=== PATIENT | female | born 1985 | race Two or more races ===

== ENCOUNTER → 2021-03-10 | Emergency (ER) | payer OTHER ==
[~2021-03-10] VITALS: Ht 160 cm; Wt 68.6 kg
[~2021-03-10] MED LIST: ACETAMINOPHEN 500 MG TABLET PO ONE; ESCI-8 PO; LURA20TA PO; TRAZ-257 PO
[2021-03-10 21:16] VITALS: BP 135/80
== END | disposition home or self-care (01) ==
LOC: EMS 21:05
DX: M25.571 Pain in right ankle and joints of right foot (principal); Z88.1 Allergy status to other antibiotic agents; Z79.899 Other long term (current) drug therapy
CPT/HCPCS: 99283

== ENCOUNTER 2021-03-16 22:42 | Emergency (ER) | payer OTHER ==
[~2021-03-16] VITALS: Ht 160 cm; Wt 68.2 kg
[~2021-03-16 22:42] MED LIST changes: -ACETAMINOPHEN 500 MG TABLET PO ONE
[2021-03-16 23:35] LABS: BASOPHILS % (AUTO) 0.9 % (0.0-2.0); EOSINOPHILS % (AUTO) 2.1 % (1.0-6.0); HEMATOCRIT 32.4 % (36-46); HEMOGLOBIN 10.1 g/dL (12.0-16.0); LYMPHOCYTES # (AUTO) 1.3 K/uL (1.0-4.8); LYMPHOCYTES % (AUTO) 26.3 % (22.0-44.0); MEAN CORPUSCULAR HEMOGLOBIN 23.3 pg (26.0-34.0); MEAN CORPUSCULAR HGB CONC 31.1 G/dL (31.0-37.0); MEAN CORPUSCULAR VOLUME 75 fL (80-100); MONOCYTES # (AUTO) 0.5 K/uL (0.1-1.0); MONOCYTES % (AUTO) 9.4 % (2.0-9.0); NEUTROPHILS # (AUTO) 3.1 K/uL (1.8-7.7); NEUTROPHILS % (AUTO) 61.3 % (40.0-70.0); PLATELET COUNT (AUTO) 262 K/uL (150-450); RED BLOOD CELL COUNT(AUTO) 4.32 MIL/uL (4.00-5.20); RED CELL DISTRIBUTION WIDTH 16.7 % (11.5-14.5)
[2021-03-16 23:38] LABS: ANION GAP 4 mmol/L (8-16); CALCIUM, TOTAL 8.8 mg/dL (8.8-10.5); CARBON DIOXIDE 27 mmol/L (22-29); CHLORIDE 106 mmol/L (98-107); CREATININE 0.88 mg/dL (0.60-1.30); GLOMERULAR FILTR. RATE CALC > 60 mL/min (>60); GLUCOSE,RANDOM 119 mg/dL (70-110); POTASSIUM 3.6 mmol/L (3.5-5.1); SODIUM SERUM 137 mmol/L (136-145); UREA NITROGEN, BLOOD 10 mg/dL (7-18)
[2021-03-16 23:50] LABS: ALANINE AMINOTRANSFERASE 23 U/L (12-78); ALBUMIN 3.4 g/dL (3.4-5.0); ALKALINE PHOSPHATASE 79 U/L (46-116); ASPARTATE AMINOTRANSFERASE 13 U/L (15-37); BILIRUBIN,TOTAL 0.2 mg/dL (0.1-1.0); TOTAL PROTEIN, SERUM 6.9 g/dL (6.4-8.2)
[2021-03-16 23:55] LABS: SALICYLATE 0.9 mg/dL (2.8-20.0)
[2021-03-17 00:13] LABS: ACETAMINOPHEN < 2 mcg/mL (10-30)
[2021-03-17 00:49] LABS: HCG,QUANTITATIVE < 1 mIU/mL (0-6)
[2021-03-17 01:08] LABS: APPEARANCE,URINE CLOUDY (CLEAR); BILIRUBIN,URINE NEGATIVE (NEGATIVE); GLUCOSE, URINE (UA) NEGATIVE (NEGATIVE); KETONES,URINE NEGATIVE (NEGATIVE); LEUKOCYTE ESTERASE ,URINE TRACE (NEGATIVE); NITRATE,URINE NEGATIVE (NEGATIVE); OCCULT BLOOD,URINE LARGE (NEGATIVE); PROTEIN,URINE POS 1+ (NEGATIVE); UROBILINOGEN,URINE 0.2 mg/dL (<=1.0)
[2021-03-17 01:21] LABS: AMPHET/METH SCREEN,URINE NEGATIVE (NEGATIVE); BARBITURATE SCREEN, URINE NEGATIVE (NEGATIVE); BENZODIAZEPINES SCREEN,URINE NEGATIVE (NEGATIVE); CANNABINOID SCREEN,URINE NEGATIVE (NEGATIVE); COCAINE SCREEN,URINE NEGATIVE (NEGATIVE); METHADONE SCREEN, URINE NEGATIVE (NEGATIVE); OPIATE SCREEN,URINE NEGATIVE (NEGATIVE)
[2021-03-17 01:22] LABS: PHENCYCLIDINE SCREEN,URINE NEGATIVE (NEGATIVE)
[2021-03-17 01:28] LABS: BACTERIA,URINE Few /HPF (None Seen); RBC,URINE 26-50 /HPF (0-2); SQUAMOUS EPITHELIAL CELL,UR Moderate /LPF (None Seen)
[2021-03-17 01:46] VITALS: BP 133/64
== END 2021-03-17 02:55 | disposition home or self-care (01) ==
LOC: EMS 22:48
DX: T43.211A Poisoning by selective serotonin and norepinephrine reuptake inhibitors, accidental (unintentional), initial encounter (principal); T43.221A Poisoning by selective serotonin reuptake inhibitors, accidental (unintentional), initial encounter; G47.00 Insomnia, unspecified; F20.9 Schizophrenia, unspecified; Z88.5 Allergy status to narcotic agent; Y92.89 Other specified places as the place of occurrence of the external cause
CPT/HCPCS: 36415; 80053; 80307; 81001; 84702; 85025; 87086; 87205; 93005; 99284; G0480; G0481

== ENCOUNTER 2021-03-17 17:55 | Inpatient (IN) | payer MEDICAID, OTHER ==
[~2021-03-17] VITALS: Ht 160 cm; Wt 66.8 kg
[2021-03-17 19:21] LABS: BASOPHILS % (AUTO) 0.6 % (0.0-2.0); EOSINOPHILS % (AUTO) 1.3 % (1.0-6.0); HEMATOCRIT 34.5 % (36-46); HEMOGLOBIN 10.7 g/dL (12.0-16.0); LYMPHOCYTES # (AUTO) 1.4 K/uL (1.0-4.8); LYMPHOCYTES % (AUTO) 30.4 % (22.0-44.0); MEAN CORPUSCULAR HEMOGLOBIN 23.1 pg (26.0-34.0); MEAN CORPUSCULAR VOLUME 75 fL (80-100); MONOCYTES # (AUTO) 0.3 K/uL (0.1-1.0); MONOCYTES % (AUTO) 7.3 % (2.0-9.0); NEUTROPHILS # (AUTO) 2.9 K/uL (1.8-7.7); NEUTROPHILS % (AUTO) 60.4 % (40.0-70.0); PLATELET COUNT (AUTO) 303 K/uL (150-450); RED BLOOD CELL COUNT(AUTO) 4.63 MIL/uL (4.00-5.20); RED CELL DISTRIBUTION WIDTH 16.5 % (11.5-14.5)
[2021-03-17 19:39] LABS: APPEARANCE,URINE CLOUDY (CLEAR); BILIRUBIN,URINE NEGATIVE (NEGATIVE); GLUCOSE, URINE (UA) NEGATIVE (NEGATIVE); KETONES,URINE NEGATIVE (NEGATIVE); LEUKOCYTE ESTERASE ,URINE SMALL (NEGATIVE); NITRATE,URINE NEGATIVE (NEGATIVE); OCCULT BLOOD,URINE LARGE (NEGATIVE); PH,URINE 6.5 (5.0-8.0); PROTEIN,URINE POS 1+ (NEGATIVE)
[2021-03-17 19:45] LABS: SALICYLATE 1.2 mg/dL (2.8-20.0)
[2021-03-17 19:47] LABS: ANION GAP 7 mmol/L (8-16); CALCIUM, TOTAL 8.9 mg/dL (8.8-10.5); CARBON DIOXIDE 28 mmol/L (22-29); CHLORIDE 103 mmol/L (98-107); CREATININE 0.76 mg/dL (0.60-1.30); GLOMERULAR FILTR. RATE CALC > 60 mL/min (>60); GLUCOSE,RANDOM 98 mg/dL (70-110); POTASSIUM 3.8 mmol/L (3.5-5.1); SODIUM SERUM 138 mmol/L (136-145); UREA NITROGEN, BLOOD 11 mg/dL (7-18)
[2021-03-17 19:49] LABS: ACETAMINOPHEN < 2 mcg/mL (10-30); ALANINE AMINOTRANSFERASE 25 U/L (12-78); ALBUMIN 3.9 g/dL (3.4-5.0); ALKALINE PHOSPHATASE 76 U/L (46-116); ASPARTATE AMINOTRANSFERASE 17 U/L (15-37); BILIRUBIN,TOTAL 0.4 mg/dL (0.1-1.0); TOTAL PROTEIN, SERUM 7.4 g/dL (6.4-8.2)
[2021-03-17 20:12] LABS: AMPHET/METH SCREEN,URINE NEGATIVE (NEGATIVE); BARBITURATE SCREEN, URINE NEGATIVE (NEGATIVE); BENZODIAZEPINES SCREEN,URINE NEGATIVE (NEGATIVE); CANNABINOID SCREEN,URINE NEGATIVE (NEGATIVE); COCAINE SCREEN,URINE NEGATIVE (NEGATIVE); METHADONE SCREEN, URINE NEGATIVE (NEGATIVE); OPIATE SCREEN,URINE NEGATIVE (NEGATIVE)
[2021-03-17 20:28] LABS: PHENCYCLIDINE SCREEN,URINE NEGATIVE (NEGATIVE)
[2021-03-17 20:42] LABS: RBC,URINE >100 /HPF (0-2)
[2021-03-17 20:43] LABS: BACTERIA,URINE Moderate /HPF (None Seen); SQUAMOUS EPITHELIAL CELL,UR Moderate /LPF (None Seen)
[2021-03-17] MEDS ORDERED: HALOPERIDOL 5 MG TABLET PO PRN (21:15)
[2021-03-17] MEDS ORDERED: ZOLPIDEM TARTRATE 10 MG TABLET PO PRN (21:15)
[2021-03-17 21:43] LABS: COVID AG,FIA SOURCE NASAL SWAB
[2021-03-17] MEDS: LORazepam 2 MG TABLET PO PRN (23:07)
[2021-03-18 02:01] VITALS: BP 110/65
[2021-03-18 07:48] LABS: CHOL/HDL RATIO 2.8 (3.9-5.7); FREE T4 (FREE THYROXINE) 1.03 ng/dL (0.76-1.46); THYROID STIMULATING HORMONE 1.39 uIU/mL (0.36-3.74)
[2021-03-18 08:24] VITALS: BP 113/72
[2021-03-18] MEDS ORDERED: MAGNESIUM HYDROXIDE SUSPENSION 30 ML UDCUP PO PRN (08:45)
[2021-03-18] MEDS ORDERED: CloNIDine HCL 0.1 MG TABLET PO PRN (08:45)
[2021-03-18] MEDS ORDERED: ALBUTEROL SULFATE HFA 90 MCG/PUFF 8 GM INHALER IH PRN (08:45)
[2021-03-18] MEDS ORDERED: NICOTINE 14 MG/24 HOUR PATCH TD PRN (08:45)
[2021-03-18] MEDS ORDERED: LOPERAMIDE HCL 2 MG CAPSULE PO PRN (08:45)
[2021-03-18] MEDS ORDERED: IBUPROFEN 400 MG TABLET PO PRN (08:45)
[2021-03-18] MEDS ORDERED: DOCUSATE SODIUM 100 MG CAPSULE PO PRN (08:45)
[2021-03-18] MEDS ORDERED: ACETAMINOPHEN 325 MG TABLET PO PRN (08:45)
[2021-03-18] MEDS ORDERED: MAG HYDROX/AL HYDROX/SIMETH ES 30 ML SUSPENSION UDCUP PO PRN (08:45)
[2021-03-18] MEDS ORDERED: GuaiFENesin/D-METHORPHAN [SUGAR-FREE] 200-20MG/10 ML SYRUP UDCUP PO PRN (08:45)
[2021-03-18] MEDS ORDERED: PETROLATUM,WHITE 28 GM JELLY TP PRN (08:45)
[2021-03-18] MEDS ORDERED: ONDANSETRON HCL 4 MG TABLET PO PRN (08:45)
[2021-03-18] MEDS: ESCITALOPRAM OXALATE 10 MG TABLET PO SCH (12:54)
[2021-03-18 16:31] VITALS: BP 114/72
[2021-03-18] MEDS: LURASIDONE HCL 40 MG TABLET PO SCH (17:04)
[2021-03-18] MEDS: TraZODone HCL 100 MG TABLET PO SCH (20:04)
[2021-03-19 05:12] VITALS: BP 100/55
[2021-03-19 08:10] VITALS: BP 119/75
[2021-03-19] MEDS: ESCITALOPRAM OXALATE 10 MG TABLET PO SCH (08:29)
[2021-03-19] MEDS: LURASIDONE HCL 40 MG TABLET PO SCH (16:49)
[2021-03-19 20:19] VITALS: BP 108/70
[2021-03-19] MEDS: TraZODone HCL 100 MG TABLET PO SCH (21:07)
[2021-03-20 05:53] VITALS: BP 106/68
[2021-03-20 08:19] VITALS: BP 126/72
[2021-03-20] MEDS: ESCITALOPRAM OXALATE 10 MG TABLET PO SCH (09:00)
[2021-03-20 16:01] VITALS: BP 123/76
[2021-03-20] MEDS: LURASIDONE HCL 40 MG TABLET PO SCH (16:53)
[2021-03-20] MEDS: TraZODone HCL 100 MG TABLET PO SCH (20:38)
[2021-03-21 00:39] VITALS: BP 102/68
[2021-03-21] MEDS: ESCITALOPRAM OXALATE 10 MG TABLET PO SCH (08:02)
[2021-03-21 09:31] VITALS: BP 105/67
[2021-03-21 16:23] VITALS: BP 106/68
[2021-03-21] MEDS: LURASIDONE HCL 40 MG TABLET PO SCH (16:44)
[2021-03-21] MEDS: MetroNIDAZOLE 500 MG TABLET PO SCH (16:44)
[2021-03-21] MEDS: TraZODone HCL 100 MG TABLET PO SCH (21:15)
[2021-03-22 00:32] VITALS: BP 104/62
[2021-03-22] MEDS: LORazepam 2 MG TABLET PO PRN (00:40)
[2021-03-22 08:00] VITALS: BP 109/58
[2021-03-22 08:37] LABS: COVID AG,FIA SOURCE NASOPHARYNGEAL
[2021-03-22] MEDS: MetroNIDAZOLE 500 MG TABLET PO SCH ×3 (09:05→16:25)
[2021-03-22] MEDS: ESCITALOPRAM OXALATE 10 MG TABLET PO SCH (09:05)
[2021-03-22] MEDS ORDERED: METR500 PO (15:47)
[2021-03-22 16:11] VITALS: BP 112/64
[2021-03-22] MEDS: LURASIDONE HCL 40 MG TABLET PO SCH (16:25)
== END 2021-03-22 16:45 | disposition home or self-care (01) | DRG 750 ==
LOC: EMS 17:56 → B2S 21:01
DX: F25.1 Schizoaffective disorder, depressive type (principal); E44.0 Moderate protein-calorie malnutrition; G47.00 Insomnia, unspecified; D64.9 Anemia, unspecified; R10.13 Epigastric pain; F41.9 Anxiety disorder, unspecified; Z20.822 Contact with and (suspected) exposure to COVID-19; Z88.8 Allergy status to other drugs, medicaments and biological substances; Z59.0 Homelessness; Z91.5 Personal history of self-harm; Z79.899 Other long term (current) drug therapy; Z68.26 Body mass index [BMI] 26.0-26.9, adult
CPT/HCPCS: 80053; 80061; 81001; 84439; 84443; 85025; 87086; 99285; G0480; G0481

== ENCOUNTER 2021-04-12 23:15 | Emergency (ER) | payer MEDICAID, OTHER ==
[~2021-04-12] VITALS: Ht 152.4 cm; Wt 52.3 kg
[~2021-04-12 23:15] MED LIST changes: +METR500 PO
[2021-04-12] MEDS ORDERED: DiphenhydrAMINE HCL 50 MG/ML VIAL IVP STA (23:25)
[2021-04-12] MEDS ORDERED: ACETAMINOPHEN 500 MG TABLET PO ONE (23:30)
[2021-04-12] MEDS ORDERED: METOCLOPRAMIDE HCL 5 MG/ML 2 ML VIAL IVP ONE (23:30)
[2021-04-12] MEDS ORDERED: IBUPROFEN 800 MG TABLET PO ONE (23:30)
[2021-04-13 00:37] LABS: COVID AG,FIA SOURCE NASOPHARYNGEAL
[2021-04-13 02:14] VITALS: BP 111/64
== END 2021-04-13 03:50 | disposition home or self-care (01) ==
LOC: EMS 23:16
DX: R51.9 Headache, unspecified (principal); R19.7 Diarrhea, unspecified; R11.0 Nausea; F41.9 Anxiety disorder, unspecified; F32.9 Major depressive disorder, single episode, unspecified; F20.9 Schizophrenia, unspecified; Z20.822 Contact with and (suspected) exposure to COVID-19; Z88.1 Allergy status to other antibiotic agents
CPT/HCPCS: 87426; 96374; 96375; 99284; J1200; J2765

== ENCOUNTER 2021-06-29 15:14 | Inpatient (IN) | payer MEDICAID, OTHER ==
[~2021-06-29] VITALS: Ht 160 cm; Wt 70.1 kg
[2021-06-29 16:35] LABS: BASOPHILS % (AUTO) 0.4 % (0.0-2.0); EOSINOPHILS % (AUTO) 1.5 % (1.0-6.0); HEMATOCRIT 31.4 % (36-46); HEMOGLOBIN 9.6 g/dL (12.0-16.0); LYMPHOCYTES # (AUTO) 1.3 K/uL (1.0-4.8); MEAN CORPUSCULAR HEMOGLOBIN 22.4 pg (26.0-34.0); MEAN CORPUSCULAR HGB CONC 30.7 G/dL (31.0-37.0); MEAN CORPUSCULAR VOLUME 73 fL (80-100); MONOCYTES # (AUTO) 0.5 K/uL (0.1-1.0); MONOCYTES % (AUTO) 9.5 % (2.0-9.0); NEUTROPHILS # (AUTO) 3.5 K/uL (1.8-7.7); NEUTROPHILS % (AUTO) 64.6 % (40.0-70.0); PLATELET COUNT (AUTO) 318 K/uL (150-450); RED BLOOD CELL COUNT(AUTO) 4.31 MIL/uL (4.00-5.20); RED CELL DISTRIBUTION WIDTH 18.2 % (11.5-14.5)
[2021-06-29 16:48] LABS: ANION GAP 7 mmol/L (8-16); CALCIUM, TOTAL 8.6 mg/dL (8.8-10.5); CARBON DIOXIDE 28 mmol/L (22-29); CHLORIDE 107 mmol/L (98-107); CREATININE 0.78 mg/dL (0.60-1.30); GLOMERULAR FILTR. RATE CALC > 60 mL/min (>60); GLUCOSE,RANDOM 96 mg/dL (70-110); POTASSIUM 3.5 mmol/L (3.5-5.1); SODIUM SERUM 142 mmol/L (136-145); UREA NITROGEN, BLOOD 12 mg/dL (7-18)
[2021-06-29 17:09] LABS: ALANINE AMINOTRANSFERASE 32 U/L (12-78); ALBUMIN 3.3 g/dL (3.4-5.0); ALKALINE PHOSPHATASE 88 U/L (46-116); ASPARTATE AMINOTRANSFERASE 17 U/L (15-37); BILIRUBIN,TOTAL 0.3 mg/dL (0.1-1.0); TOTAL PROTEIN, SERUM 7.1 g/dL (6.4-8.2)
[2021-06-29] MEDS ORDERED: ZOLPIDEM TARTRATE 10 MG TABLET PO PRN (17:15)
[2021-06-29] MEDS ORDERED: LORazepam 2 MG TABLET PO PRN (17:15)
[2021-06-29] MEDS ORDERED: HALOPERIDOL 5 MG TABLET PO PRN (17:15)
[2021-06-29 17:28] LABS: COVID AG,FIA SOURCE NASOPHARYNGEAL
[2021-06-29 17:29] LABS: HCG,QUANTITATIVE < 1 mIU/mL (0-6)
[2021-06-29] MEDS ORDERED: ONDANSETRON HCL 4 MG TABLET PO ONE (20:45)
[2021-06-29 21:20] VITALS: BP 121/76
[2021-06-29] MEDS ORDERED: SODIUM CHLORIDE 0.9% 0 ML ONE (21:26)
[2021-06-29] MEDS ORDERED: IOHEXOL 350 MG/ML 100 ML VIAL ONE (21:26)
[2021-06-29] MEDS ORDERED: BARIUM SULFATE 0.1% SUSPENSION 450 ML BOTTLE ONE (21:26)
[2021-06-29] MEDS ORDERED: ONDANSETRON HCL 4 MG TABLET PO PRN (21:30)
[2021-06-29 21:41] LABS: AMYLASE 52 U/L (25-115); LIPASE 64 U/L (73-393)
[2021-06-29] MEDS: IBUPROFEN 400 MG TABLET PO PRN ×2 (21:58→22:03)
[2021-06-30 08:14] VITALS: BP 108/67
[2021-06-30 09:24] LABS: CHOL/HDL RATIO 2.2 (3.9-5.7); FREE T4 (FREE THYROXINE) 1.07 ng/dL (0.76-1.46); THYROID STIMULATING HORMONE 0.26 uIU/mL (0.36-3.74)
[2021-07-02] MEDS ORDERED: LURA40TA2 PO (11:32)
[2021-07-07] MEDS ORDERED: DOCU-270 PO (13:15)
[2021-07-07] MEDS ORDERED: BISA10SU11 PR (13:16)
== END 2021-06-30 11:00 | disposition short-term general hospital (02) | DRG 750 ==
LOC: EMS 15:16 → 3EC 20:34
DX: F25.9 Schizoaffective disorder, unspecified (principal); R45.851 Suicidal ideations; Z20.822 Contact with and (suspected) exposure to COVID-19; D64.9 Anemia, unspecified; Z88.8 Allergy status to other drugs, medicaments and biological substances; Z91.5 Personal history of self-harm
CPT/HCPCS: 74176; 80053; 80061; 82150; 83690; 84439; 84443; 84702; 85025; 99285; G0480; J7050; Q0162; Q9967

== ENCOUNTER 2021-07-08 18:01 | Emergency (ER) | payer OTHER ==
[~2021-07-08] VITALS: Ht 162.6 cm; Wt 69.9 kg
[~2021-07-08 18:01] MED LIST changes: +BISA10SU11 PR; +DOCU-270 PO; -LURA20TA PO; +LURA40TA2 PO; -METR500 PO
[2021-07-08 18:20] VITALS: BP 118/75
[2021-07-08] MEDS ORDERED: MAGNESIUM HYDROXIDE SUSPENSION 30 ML UDCUP PO ONE (18:30)
[2021-07-08] MEDS ORDERED: ACETAMINOPHEN 500 MG TABLET PO ONE (18:30)
== END 2021-07-08 19:28 | disposition home or self-care (01) ==
LOC: EMS 18:06
DX: K91.89 Other postprocedural complications and disorders of digestive system (principal); F25.9 Schizoaffective disorder, unspecified; R10.84 Generalized abdominal pain; F41.9 Anxiety disorder, unspecified; F32.9 Major depressive disorder, single episode, unspecified; Z91.14 Patient's other noncompliance with medication regimen; Z88.5 Allergy status to narcotic agent; Z88.1 Allergy status to other antibiotic agents
CPT/HCPCS: 99283

== ENCOUNTER 2021-07-18 12:32 | Emergency (ER) | payer OTHER ==
[~2021-07-18] VITALS: Ht 160 cm; Wt 60.9 kg
[2021-07-18] MEDS ORDERED: KETOROLAC TROMETHAMINE 30 MG/ML VIAL IVP ONE (13:15)
[2021-07-18 13:32] LABS: BASOPHILS % (AUTO) 0.9 % (0.0-2.0); EOSINOPHILS % (AUTO) 2.9 % (1.0-6.0); HEMATOCRIT 29.6 % (36-46); HEMOGLOBIN 9.2 g/dL (12.0-16.0); LYMPHOCYTES # (AUTO) 1.3 K/uL (1.0-4.8); LYMPHOCYTES % (AUTO) 25.6 % (22.0-44.0); MEAN CORPUSCULAR HEMOGLOBIN 22.3 pg (26.0-34.0); MEAN CORPUSCULAR HGB CONC 31.1 G/dL (31.0-37.0); MEAN CORPUSCULAR VOLUME 72 fL (80-100); MONOCYTES # (AUTO) 0.5 K/uL (0.1-1.0); MONOCYTES % (AUTO) 9.2 % (2.0-9.0); NEUTROPHILS # (AUTO) 3.1 K/uL (1.8-7.7); NEUTROPHILS % (AUTO) 61.4 % (40.0-70.0); PLATELET COUNT (AUTO) 459 K/uL (150-450); RED BLOOD CELL COUNT(AUTO) 4.12 MIL/uL (4.00-5.20); RED CELL DISTRIBUTION WIDTH 17.9 % (11.5-14.5)
[2021-07-18 13:42] LABS: ANION GAP 12 mmol/L (8-16); CALCIUM, TOTAL 8.8 mg/dL (8.8-10.5); CARBON DIOXIDE 25 mmol/L (22-29); CHLORIDE 103 mmol/L (98-107); CREATININE 0.63 mg/dL (0.60-1.30); GLOMERULAR FILTR. RATE CALC > 60 mL/min (>60); GLUCOSE,RANDOM 97 mg/dL (70-110); POTASSIUM 3.7 mmol/L (3.5-5.1); SODIUM SERUM 140 mmol/L (136-145); UREA NITROGEN, BLOOD 9 mg/dL (7-18)
[2021-07-18 13:54] LABS: ALANINE AMINOTRANSFERASE 35 U/L (12-78); ALBUMIN 3.3 g/dL (3.4-5.0); ALKALINE PHOSPHATASE 88 U/L (46-116); ASPARTATE AMINOTRANSFERASE 17 U/L (15-37); BILIRUBIN,TOTAL 0.4 mg/dL (0.1-1.0); HCG,QUANTITATIVE < 1 mIU/mL (0-6); LIPASE 115 U/L (73-393); TOTAL PROTEIN, SERUM 7.2 g/dL (6.4-8.2)
[2021-07-18] MEDS ORDERED: SODIUM CHLORIDE 0.9% 100 ML ONE (14:21)
[2021-07-18] MEDS ORDERED: IOHEXOL 350 MG/ML 100 ML VIAL ONE (14:22)
[2021-07-18 14:54] LABS: APPEARANCE,URINE CLOUDY (CLEAR); BILIRUBIN,URINE NEGATIVE (NEGATIVE); GLUCOSE, URINE (UA) NEGATIVE (NEGATIVE); KETONES,URINE 15 mg/dL (NEGATIVE); LEUKOCYTE ESTERASE ,URINE NEGATIVE (NEGATIVE); NITRATE,URINE NEGATIVE (NEGATIVE); OCCULT BLOOD,URINE SMALL (NEGATIVE); PH,URINE 5.5 (5.0-8.0); PROTEIN,URINE NEGATIVE (NEGATIVE); UROBILINOGEN,URINE 0.2 mg/dL (<=1.0)
[2021-07-18 15:55] LABS: BACTERIA,URINE Few /HPF (None Seen); SQUAMOUS EPITHELIAL CELL,UR Many /LPF (None Seen); WBC,URINE 0-2 /HPF (0-5)
[2021-07-18 17:36] LABS: LACTIC ACID 0.9 mmol/L (0.4-2.0)
[2021-07-18 20:05] VITALS: BP 129/68
== END 2021-07-18 20:58 | disposition home or self-care (01) ==
LOC: EMS 12:35
DX: G89.18 Other acute postprocedural pain (principal); R10.84 Generalized abdominal pain
CPT/HCPCS: 36415; 74176; 76856; 80053; 81001; 83605; 83690; 84702; 85025; 99285; J7050; Q9967

== ENCOUNTER 2021-07-20 23:15 | Emergency (ER) | payer OTHER ==
[~2021-07-20] VITALS: Ht 172.7 cm; Wt 63.6 kg
[2021-07-20] MEDS ORDERED: LIDOCAINE 1% 10 ML VIAL ID ONE (23:45)
[2021-07-21 03:15] VITALS: BP 118/66
== END 2021-07-21 03:43 | disposition home or self-care (01) ==
LOC: EMS 23:19
DX: G47.00 Insomnia, unspecified (principal); F20.9 Schizophrenia, unspecified; F32.9 Major depressive disorder, single episode, unspecified; F41.9 Anxiety disorder, unspecified; Z88.1 Allergy status to other antibiotic agents; Z88.8 Allergy status to other drugs, medicaments and biological substances
CPT/HCPCS: 99283; Z7502

== ENCOUNTER 2021-07-30 13:52 | Emergency (ER) | payer OTHER ==
[~2021-07-30] VITALS: Ht 162.6 cm; Wt 67.7 kg
[2021-07-30 14:34] LABS: COVID AG,FIA SOURCE NASAL SWAB
[2021-07-30 14:38] LABS: BASOPHILS % (AUTO) 0.7 % (0.0-2.0); EOSINOPHILS % (AUTO) 3.2 % (1.0-6.0); HEMOGLOBIN 9.3 g/dL (12.0-16.0); LYMPHOCYTES # (AUTO) 1.3 K/uL (1.0-4.8); LYMPHOCYTES % (AUTO) 25.6 % (22.0-44.0); MEAN CORPUSCULAR HEMOGLOBIN 21.9 pg (26.0-34.0); MEAN CORPUSCULAR HGB CONC 30.9 G/dL (31.0-37.0); MEAN CORPUSCULAR VOLUME 71 fL (80-100); MONOCYTES # (AUTO) 0.5 K/uL (0.1-1.0); MONOCYTES % (AUTO) 9.4 % (2.0-9.0); NEUTROPHILS # (AUTO) 3.2 K/uL (1.8-7.7); NEUTROPHILS % (AUTO) 61.1 % (40.0-70.0); PLATELET COUNT (AUTO) 310 K/uL (150-450); RED BLOOD CELL COUNT(AUTO) 4.23 MIL/uL (4.00-5.20); RED CELL DISTRIBUTION WIDTH 17.8 % (11.5-14.5)
[2021-07-30 14:56] LABS: ANION GAP 6 mmol/L (8-16); CALCIUM, TOTAL 8.6 mg/dL (8.8-10.5); CARBON DIOXIDE 28 mmol/L (22-29); CHLORIDE 107 mmol/L (98-107); CREATININE 0.65 mg/dL (0.60-1.30); GLOMERULAR FILTR. RATE CALC > 60 mL/min (>60); GLUCOSE,RANDOM 104 mg/dL (70-110); POTASSIUM 3.6 mmol/L (3.5-5.1); SODIUM SERUM 141 mmol/L (136-145); UREA NITROGEN, BLOOD 9 mg/dL (7-18)
[2021-07-30 15:02] LABS: INFLUENZA TYPE A NEGATIVE FOR TYPE A (NEGATIVE); INFLUENZA TYPE B NEGATIVE FOR TYPE B (NEGATIVE)
[2021-07-30 15:50] LABS: ALANINE AMINOTRANSFERASE 35 U/L (12-78); ALBUMIN 3.5 g/dL (3.4-5.0); ALKALINE PHOSPHATASE 86 U/L (46-116); ASPARTATE AMINOTRANSFERASE 20 U/L (15-37); BILIRUBIN,TOTAL 0.2 mg/dL (0.1-1.0); HCG,QUANTITATIVE 1 mIU/mL (0-6); TOTAL PROTEIN, SERUM 7.2 g/dL (6.4-8.2)
[2021-07-30 16:10] LABS: APPEARANCE,URINE CLOUDY (CLEAR); BILIRUBIN,URINE NEGATIVE (NEGATIVE); GLUCOSE, URINE (UA) NEGATIVE (NEGATIVE); KETONES,URINE NEGATIVE (NEGATIVE); LEUKOCYTE ESTERASE ,URINE NEGATIVE (NEGATIVE); NITRATE,URINE NEGATIVE (NEGATIVE); OCCULT BLOOD,URINE LARGE (NEGATIVE); PROTEIN,URINE NEGATIVE (NEGATIVE); UROBILINOGEN,URINE 0.2 mg/dL (<=1.0)
[2021-07-30 16:22] LABS: SQUAMOUS EPITHELIAL CELL,UR Few /LPF (None Seen)
[2021-07-30 16:23] LABS: BACTERIA,URINE Rare /HPF (None Seen)
[2021-07-30 16:52] VITALS: BP 127/77
== END 2021-07-30 17:00 | disposition home or self-care (01) ==
LOC: EDUNIT# 13:52 → EMS 13:54
DX: B34.9 Viral infection, unspecified (principal); G47.00 Insomnia, unspecified; F32.9 Major depressive disorder, single episode, unspecified; F20.9 Schizophrenia, unspecified; F41.9 Anxiety disorder, unspecified; Z20.822 Contact with and (suspected) exposure to COVID-19
CPT/HCPCS: 80053; 81001; 84702; 85025; 87804; 93005; 99284

== ENCOUNTER 2021-09-26 22:03 | Emergency (ER) | payer OTHER ==
[~2021-09-26] VITALS: Ht 165.1 cm; Wt 70.5 kg
[2021-09-26] MEDS ORDERED: ONDANSETRON HCL 4 MG/2 ML VIAL IVP ONE (22:45)
[2021-09-26] MEDS ORDERED: KETOROLAC TROMETHAMINE 30 MG/ML VIAL IVP ONE (22:45)
[2021-09-26] MEDS ORDERED: SODIUM CHLORIDE 0.9% 1,000 ML IV ONE (22:45)
[2021-09-26 22:55] LABS: BASOPHILS % (AUTO) 0.5 % (0.0-2.0); EOSINOPHILS % (AUTO) 1.5 % (1.0-6.0); HEMOGLOBIN 10.3 g/dL (12.0-16.0); LYMPHOCYTES # (AUTO) 1.2 K/uL (1.0-4.8); LYMPHOCYTES % (AUTO) 21.1 % (22.0-44.0); MEAN CORPUSCULAR HEMOGLOBIN 21.1 pg (26.0-34.0); MEAN CORPUSCULAR HGB CONC 31.2 G/dL (31.0-37.0); MEAN CORPUSCULAR VOLUME 68 fL (80-100); MONOCYTES # (AUTO) 0.7 K/uL (0.1-1.0); MONOCYTES % (AUTO) 12.5 % (2.0-9.0); NEUTROPHILS # (AUTO) 3.8 K/uL (1.8-7.7); NEUTROPHILS % (AUTO) 64.4 % (40.0-70.0); PLATELET COUNT (AUTO) 406 K/uL (150-450); RED BLOOD CELL COUNT(AUTO) 4.89 MIL/uL (4.00-5.20); RED CELL DISTRIBUTION WIDTH 18.1 % (11.5-14.5)
[2021-09-26 23:03] LABS: ANION GAP 6 mmol/L (8-16); CALCIUM, TOTAL 8.9 mg/dL (8.8-10.5); CARBON DIOXIDE 29 mmol/L (22-29); CHLORIDE 107 mmol/L (98-107); CREATININE 0.84 mg/dL (0.60-1.30); GLOMERULAR FILTR. RATE CALC > 60 mL/min (>60); GLUCOSE,RANDOM 104 mg/dL (70-110); POTASSIUM 3.4 mmol/L (3.5-5.1); SODIUM SERUM 142 mmol/L (136-145); UREA NITROGEN, BLOOD 18 mg/dL (7-18)
[2021-09-26 23:15] LABS: ALANINE AMINOTRANSFERASE 41 U/L (12-78); ALBUMIN 3.5 g/dL (3.4-5.0); ALKALINE PHOSPHATASE 91 U/L (46-116); ASPARTATE AMINOTRANSFERASE 25 U/L (15-37); BILIRUBIN,TOTAL 0.3 mg/dL (0.1-1.0); HCG,QUANTITATIVE < 1 mIU/mL (0-6); LIPASE 54 U/L (73-393); TOTAL PROTEIN, SERUM 7.4 g/dL (6.4-8.2)
[2021-09-26] MEDS ORDERED: SODIUM CHLORIDE 0.9% 100 ML ONE (23:36)
[2021-09-26] MEDS ORDERED: IOHEXOL 350 MG/ML 100 ML VIAL ONE (23:36)
[2021-09-27] MEDS ORDERED: POTASSIUM CHLORIDE 10% 40 MEQ/30 ML LIQUID UDCUP PO ONE (01:15)
[2021-09-27 04:01] VITALS: BP 108/70
[2021-09-27 04:21] LABS: COVID AG,FIA SOURCE NASOPHARYNGEAL
[2021-09-27 05:48] LABS: APPEARANCE,URINE CLEAR (CLEAR); BILIRUBIN,URINE NEGATIVE (NEGATIVE); GLUCOSE, URINE (UA) NEGATIVE (NEGATIVE); KETONES,URINE NEGATIVE (NEGATIVE); LEUKOCYTE ESTERASE ,URINE NEGATIVE (NEGATIVE); NITRATE,URINE NEGATIVE (NEGATIVE); OCCULT BLOOD,URINE NEGATIVE (NEGATIVE); PROTEIN,URINE TRACE (NEGATIVE); UROBILINOGEN,URINE 0.2 mg/dL (<=1.0)
[2021-09-27 06:49] LABS: BACTERIA,URINE None Seen /HPF (None Seen); RBC,URINE None Seen /HPF (0-2); SQUAMOUS EPITHELIAL CELL,UR Few /LPF (None Seen); WBC,URINE None Seen /HPF (0-5)
== END 2021-09-27 05:15 | disposition home or self-care (01) ==
LOC: EMS 22:06
DX: K52.9 Noninfective gastroenteritis and colitis, unspecified (principal); Z20.822 Contact with and (suspected) exposure to COVID-19
CPT/HCPCS: 36415; 74177; 76705; 80053; 81001; 83690; 84702; 85025; 87210; 87426; 96361; 96374; 96375; 99285; J1885; J2405; J7050; Q9967

== ENCOUNTER 2021-10-06 13:54 | Emergency (ER) | payer OTHER ==
[~2021-10-06] VITALS: Ht 160 cm; Wt 72.7 kg
[~2021-10-06 13:54] MED LIST changes: -BISA10SU11 PR; -DOCU-270 PO
[2021-10-06 14:21] VITALS: BP 118/67
== END 2021-10-06 15:08 | disposition home or self-care (01) ==
LOC: EMS 13:54
DX: R63.8 Other symptoms and signs concerning food and fluid intake (principal); F32.9 Major depressive disorder, single episode, unspecified; F41.9 Anxiety disorder, unspecified; F20.9 Schizophrenia, unspecified; Z88.1 Allergy status to other antibiotic agents; Z79.899 Other long term (current) drug therapy
CPT/HCPCS: 99283; Z7502

== ENCOUNTER 2021-10-08 18:42 | Emergency (ER) | payer OTHER ==
[~2021-10-08] VITALS: Ht 160 cm; Wt 72.7 kg
[2021-10-08 18:54] VITALS: BP 134/83
[2021-10-08 20:28] LABS: BASOPHILS % (AUTO) 0.5 % (0.0-2.0); EOSINOPHILS % (AUTO) 1.2 % (1.0-6.0); HEMATOCRIT 30.7 % (36-46); HEMOGLOBIN 9.6 g/dL (12.0-16.0); LYMPHOCYTES # (AUTO) 1.7 K/uL (1.0-4.8); LYMPHOCYTES % (AUTO) 23.1 % (22.0-44.0); MEAN CORPUSCULAR HGB CONC 31.2 G/dL (31.0-37.0); MEAN CORPUSCULAR VOLUME 67 fL (80-100); MONOCYTES # (AUTO) 0.7 K/uL (0.1-1.0); MONOCYTES % (AUTO) 9.1 % (2.0-9.0); NEUTROPHILS % (AUTO) 66.1 % (40.0-70.0); PLATELET COUNT (AUTO) 396 K/uL (150-450); RED BLOOD CELL COUNT(AUTO) 4.57 MIL/uL (4.00-5.20); RED CELL DISTRIBUTION WIDTH 18.1 % (11.5-14.5)
[2021-10-08 20:37] LABS: ANION GAP 5 mmol/L (8-16); CALCIUM, TOTAL 8.9 mg/dL (8.8-10.5); CARBON DIOXIDE 29 mmol/L (22-29); CHLORIDE 106 mmol/L (98-107); CREATININE 0.66 mg/dL (0.60-1.30); GLOMERULAR FILTR. RATE CALC > 60 mL/min (>60); GLUCOSE,RANDOM 115 mg/dL (70-110); POTASSIUM 3.7 mmol/L (3.5-5.1); SODIUM SERUM 140 mmol/L (136-145); UREA NITROGEN, BLOOD 14 mg/dL (7-18)
[2021-10-08 20:48] LABS: ALANINE AMINOTRANSFERASE 31 U/L (12-78); ALBUMIN 3.6 g/dL (3.4-5.0); ALKALINE PHOSPHATASE 94 U/L (46-116); ASPARTATE AMINOTRANSFERASE 13 U/L (15-37); BILIRUBIN,TOTAL 0.2 mg/dL (0.1-1.0); HCG,QUANTITATIVE < 1 mIU/mL (0-6); LIPASE 90 U/L (73-393); TOTAL PROTEIN, SERUM 7.3 g/dL (6.4-8.2)
[2021-10-08 20:52] LABS: APPEARANCE,URINE CLOUDY (CLEAR); BILIRUBIN,URINE NEGATIVE (NEGATIVE); GLUCOSE, URINE (UA) NEGATIVE (NEGATIVE); KETONES,URINE NEGATIVE (NEGATIVE); LEUKOCYTE ESTERASE ,URINE NEGATIVE (NEGATIVE); NITRATE,URINE NEGATIVE (NEGATIVE); OCCULT BLOOD,URINE TRACE (NEGATIVE); PH,URINE 5.5 (5.0-8.0); PROTEIN,URINE NEGATIVE (NEGATIVE); UROBILINOGEN,URINE 0.2 mg/dL (<=1.0)
[2021-10-08 20:54] LABS: BACTERIA,URINE None Seen /HPF (None Seen); RBC,URINE 0-2 /HPF (0-2); SQUAMOUS EPITHELIAL CELL,UR Moderate /LPF (None Seen); WBC,URINE 0-2 /HPF (0-5)
== END 2021-10-08 21:20 | disposition home or self-care (01) ==
LOC: EMS 18:47
DX: R19.7 Diarrhea, unspecified (principal); R10.31 Right lower quadrant pain; F20.9 Schizophrenia, unspecified
CPT/HCPCS: 80053; 81001; 83690; 84702; 85025; 99283

== ENCOUNTER 2021-10-21 21:54 | Emergency (ER) | payer OTHER ==
[~2021-10-21] VITALS: Ht 160 cm; Wt 72.7 kg
[2021-10-22 00:20] LABS: BASOPHILS % (AUTO) 0.4 % (0.0-2.0); EOSINOPHILS % (AUTO) 1.4 % (1.0-6.0); HEMATOCRIT 33.1 % (36-46); HEMOGLOBIN 10.1 g/dL (12.0-16.0); LYMPHOCYTES # (AUTO) 1.8 K/uL (1.0-4.8); LYMPHOCYTES % (AUTO) 23.5 % (22.0-44.0); MEAN CORPUSCULAR HGB CONC 30.6 G/dL (31.0-37.0); MEAN CORPUSCULAR VOLUME 68 fL (80-100); MONOCYTES # (AUTO) 0.8 K/uL (0.1-1.0); NEUTROPHILS # (AUTO) 4.9 K/uL (1.8-7.7); NEUTROPHILS % (AUTO) 64.7 % (40.0-70.0); PLATELET COUNT (AUTO) 407 K/uL (150-450); RED BLOOD CELL COUNT(AUTO) 4.84 MIL/uL (4.00-5.20); RED CELL DISTRIBUTION WIDTH 19.3 % (11.5-14.5)
[2021-10-22 00:31] LABS: ANION GAP 2 mmol/L (8-16); CALCIUM, TOTAL 9.5 mg/dL (8.8-10.5); CARBON DIOXIDE 30 mmol/L (22-29); CHLORIDE 105 mmol/L (98-107); CREATININE 0.74 mg/dL (0.60-1.30); GLOMERULAR FILTR. RATE CALC > 60 mL/min (>60); GLUCOSE,RANDOM 102 mg/dL (70-110); POTASSIUM 3.7 mmol/L (3.5-5.1); SODIUM SERUM 137 mmol/L (136-145); UREA NITROGEN, BLOOD 13 mg/dL (7-18)
[2021-10-22 00:36] LABS: ALANINE AMINOTRANSFERASE 20 U/L (12-78); ALBUMIN 3.8 g/dL (3.4-5.0); ALKALINE PHOSPHATASE 89 U/L (46-116); ASPARTATE AMINOTRANSFERASE 10 U/L (15-37); BILIRUBIN,TOTAL 0.4 mg/dL (0.1-1.0); LIPASE 81 U/L (73-393); TOTAL PROTEIN, SERUM 7.8 g/dL (6.4-8.2)
[2021-10-22] MEDS ORDERED: ONDANSETRON HCL 4 MG TABLET PO ONE (01:00)
[2021-10-22 02:08] LABS: HCG,QUANTITATIVE 1 mIU/mL (0-6)
[2021-10-22 03:38] VITALS: BP 110/72
== END 2021-10-22 03:39 | disposition home or self-care (01) ==
LOC: EMS 22:00
DX: R11.2 Nausea with vomiting, unspecified (principal); R19.7 Diarrhea, unspecified; D64.9 Anemia, unspecified; F20.9 Schizophrenia, unspecified; Z88.1 Allergy status to other antibiotic agents; Z79.899 Other long term (current) drug therapy
CPT/HCPCS: 36415; 80053; 83690; 84702; 85025; 99283; Q0162

== ENCOUNTER 2022-09-11 18:06 | Inpatient (IN) | payer MEDICAID, OTHER ==
[~2022-09-11] VITALS: Ht 160 cm; Wt 72.7 kg
[2022-09-11 20:11] LABS: BASOPHILS % (AUTO) 0.5 % (0.0-2.0); EOSINOPHILS % (AUTO) 0.7 % (1.0-6.0); HEMATOCRIT 37.9 % (36-46); HEMOGLOBIN 12.2 g/dL (12.0-16.0); LYMPHOCYTES # (AUTO) 1.8 K/uL (1.0-4.8); LYMPHOCYTES % (AUTO) 22.9 % (22.0-44.0); MEAN CORPUSCULAR HEMOGLOBIN 24.9 pg (26.0-34.0); MEAN CORPUSCULAR HGB CONC 32.2 G/dL (31.0-37.0); MEAN CORPUSCULAR VOLUME 77 fL (80-100); MONOCYTES # (AUTO) 0.6 K/uL (0.1-1.0); MONOCYTES % (AUTO) 8.3 % (2.0-9.0); NEUTROPHILS # (AUTO) 5.2 K/uL (1.8-7.7); NEUTROPHILS % (AUTO) 67.6 % (40.0-70.0); PLATELET COUNT (AUTO) 375 K/uL (150-450); RED CELL DISTRIBUTION WIDTH 17.7 % (11.5-14.5)
[2022-09-11 20:23] LABS: ANION GAP 6 mmol/L (8-16); CALCIUM, TOTAL 9.2 mg/dL (8.8-10.5); CARBON DIOXIDE 27 mmol/L (22-29); CHLORIDE 103 mmol/L (98-107); GLOMERULAR FILTR. RATE CALC > 60 mL/min (>60); GLUCOSE,RANDOM 86 mg/dL (70-110); POTASSIUM 3.9 mmol/L (3.5-5.1); SODIUM SERUM 136 mmol/L (136-145); UREA NITROGEN, BLOOD 18 mg/dL (7-18)
[2022-09-11 20:35] LABS: ALANINE AMINOTRANSFERASE 20 U/L (12-78); ALKALINE PHOSPHATASE 97 U/L (46-116); ASPARTATE AMINOTRANSFERASE 16 U/L (15-37); BILIRUBIN,TOTAL 0.4 mg/dL (0.1-1.0); HCG,QUANTITATIVE < 1 mIU/mL (0-6); TOTAL PROTEIN, SERUM 8.2 g/dL (6.4-8.2)
[2022-09-11 20:51] LABS: COVID AG,FIA SOURCE NASOPHARYNGEAL
[2022-09-11] MEDS ORDERED: HALOPERIDOL 5 MG TABLET PO PRN (21:00)
[2022-09-11] MEDS ORDERED: ZOLPIDEM TARTRATE 10 MG TABLET PO PRN (21:00)
[2022-09-11 21:29] LABS: AMPHET/METH SCREEN,URINE NEGATIVE (NEGATIVE); BARBITURATE SCREEN, URINE NEGATIVE (NEGATIVE); BENZODIAZEPINES SCREEN,URINE NEGATIVE (NEGATIVE); CANNABINOID SCREEN,URINE NEGATIVE (NEGATIVE); COCAINE SCREEN,URINE NEGATIVE (NEGATIVE); METHADONE SCREEN, URINE NEGATIVE (NEGATIVE); OPIATE SCREEN,URINE NEGATIVE (NEGATIVE)
[2022-09-11 21:33] LABS: PHENCYCLIDINE SCREEN,URINE NEGATIVE (NEGATIVE)
[2022-09-11 21:35] LABS: APPEARANCE,URINE CLEAR (CLEAR); BILIRUBIN,URINE NEGATIVE (NEGATIVE); GLUCOSE, URINE (UA) NEGATIVE (NEGATIVE); KETONES,URINE 80-100 mg/dL (NEGATIVE); LEUKOCYTE ESTERASE ,URINE NEGATIVE (NEGATIVE); NITRATE,URINE NEGATIVE (NEGATIVE); OCCULT BLOOD,URINE NEGATIVE (NEGATIVE); PROTEIN,URINE TRACE mg/dL (NEGATIVE); SPECIFIC GRAVITIY, URINE 1.028 (1.003-1.030)
[2022-09-12 00:44] VITALS: BP 125/80
[2022-09-12 08:35] VITALS: BP 124/64
[2022-09-12] MEDS: ESCITALOPRAM OXALATE 10 MG TABLET PO SCH (11:27)
[2022-09-12] MEDS ORDERED: ALBUTEROL SULFATE HFA 90 MCG/PUFF 8 GM INHALER IH PRN (15:45)
[2022-09-12] MEDS ORDERED: ACETAMINOPHEN 325 MG TABLET PO PRN (15:45)
[2022-09-12] MEDS ORDERED: LOPERAMIDE HCL 2 MG CAPSULE PO PRN (15:45)
[2022-09-12] MEDS ORDERED: ONDANSETRON HCL 4 MG TABLET PO PRN (15:45)
[2022-09-12] MEDS ORDERED: MAGNESIUM HYDROXIDE SUSPENSION 30 ML UDCUP PO PRN (15:45)
[2022-09-12] MEDS ORDERED: IBUPROFEN 400 MG TABLET PO PRN (15:45)
[2022-09-12] MEDS ORDERED: MAG HYDROX/AL HYDROX/SIMETH ES 30 ML SUSPENSION UDCUP PO PRN (15:45)
[2022-09-12] MEDS ORDERED: NICOTINE 14 MG/24 HOUR PATCH TD PRN (15:45)
[2022-09-12] MEDS ORDERED: PETROLATUM,WHITE 28 GM JELLY TP PRN (15:45)
[2022-09-12] MEDS ORDERED: DOCUSATE SODIUM 100 MG CAPSULE PO PRN (15:45)
[2022-09-12] MEDS ORDERED: GuaiFENesin/D-METHORPHAN [SUGAR-FREE] 200-20MG/10 ML SYRUP UDCUP PO PRN (15:45)
[2022-09-12] MEDS ORDERED: CloNIDine HCL 0.1 MG TABLET PO PRN (15:45)
[2022-09-12] MEDS: LURASIDONE HCL 40 MG TABLET PO SCH (17:21)
[2022-09-12] MEDS: TraZODone HCL 100 MG TABLET PO SCH (20:34)
[2022-09-13 07:27] LABS: CHOL/HDL RATIO 2.7 (3.9-5.7); THYROID STIMULATING HORMONE 0.75 uIU/mL (0.36-3.74)
[2022-09-13 08:00] VITALS: BP 97/60
[2022-09-13] MEDS: ESCITALOPRAM OXALATE 10 MG TABLET PO SCH (08:26)
[2022-09-13 16:00] VITALS: BP 98/54
[2022-09-13] MEDS: LURASIDONE HCL 40 MG TABLET PO SCH (16:50)
[2022-09-13] MEDS: TraZODone HCL 100 MG TABLET PO SCH (20:05)
[2022-09-14 08:00] VITALS: BP 98/60
[2022-09-14] MEDS: ESCITALOPRAM OXALATE 10 MG TABLET PO SCH (08:45)
[2022-09-14 16:11] VITALS: BP 121/78
[2022-09-14] MEDS: LURASIDONE HCL 40 MG TABLET PO SCH (18:09)
[2022-09-14] MEDS: TraZODone HCL 100 MG TABLET PO SCH (20:08)
[2022-09-15 08:08] VITALS: BP 113/90
[2022-09-15] MEDS: ESCITALOPRAM OXALATE 10 MG TABLET PO SCH (08:27)
[2022-09-15 16:02] VITALS: BP 130/74
[2022-09-15] MEDS: LURASIDONE HCL 40 MG TABLET PO SCH (17:18)
[2022-09-15] MEDS: TraZODone HCL 100 MG TABLET PO SCH (20:07)
[2022-09-16] MEDS: ESCITALOPRAM OXALATE 10 MG TABLET PO SCH (08:11)
[2022-09-16 08:22] VITALS: BP 124/71
[2022-09-16] MEDS: LORazepam 2 MG TABLET PO PRN (09:16)
[2022-09-16 16:04] VITALS: BP 98/56
[2022-09-16] MEDS: LURASIDONE HCL 40 MG TABLET PO SCH (16:26)
[2022-09-16 20:14] VITALS: BP 129/79
[2022-09-16] MEDS: TraZODone HCL 100 MG TABLET PO SCH (20:52)
[2022-09-17 09:39] VITALS: BP 107/61
[2022-09-17] MEDS: ESCITALOPRAM OXALATE 10 MG TABLET PO SCH (10:23)
[2022-09-17 12:09] VITALS: BP 95/58
[2022-09-17 17:01] VITALS: BP 119/75
[2022-09-17] MEDS: LURASIDONE HCL 40 MG TABLET PO SCH (17:57)
[2022-09-17] MEDS: TraZODone HCL 100 MG TABLET PO SCH (20:10)
[2022-09-18] MEDS: ESCITALOPRAM OXALATE 10 MG TABLET PO SCH (07:57)
[2022-09-18] MEDS: LORazepam 2 MG TABLET PO PRN (07:57)
[2022-09-18 08:04] LABS: COVID AG,FIA SOURCE NASAL SWAB
[2022-09-18 08:20] VITALS: BP 110/76
[2022-09-18] MEDS ORDERED: ESCI-8 PO (11:43)
[2022-09-18] MEDS ORDERED: ESCI10 PO (13:08)
== END 2022-09-18 14:42 | disposition home or self-care (01) | DRG 750 ==
LOC: EMS 18:07 → 3EC 21:00 → UNDOADMIN 21:00
PROVIDERS: ADMIT Psychiatry & Neurology Psychiatry; ATTEND Psychiatry & Neurology Psychiatry
DX: F25.1 Schizoaffective disorder, depressive type (principal); R45.851 Suicidal ideations; D64.9 Anemia, unspecified; Z20.822 Contact with and (suspected) exposure to COVID-19; G47.00 Insomnia, unspecified; Z88.1 Allergy status to other antibiotic agents; Z79.899 Other long term (current) drug therapy; Z91.51 Personal history of suicidal behavior; Z88.8 Allergy status to other drugs, medicaments and biological substances
CPT/HCPCS: 80053; 80061; 81003; 84443; 84702; 85025; 87081; 99285; G0480

== ENCOUNTER 2024-10-02 10:25 | Emergency (ER) | payer MEDICAID ==
[~2024-10-02] VITALS: Ht 160 cm; Wt 79.2 kg
[~2024-10-02 10:25] MED LIST changes: +ESCI10 PO
[2024-10-02 10:33] VITALS: TEMP 98.5
[2024-10-02 11:58] LABS: APPEARANCE,URINE HAZY (CLEAR); BILIRUBIN,URINE NEGATIVE (NEGATIVE); COLOR,URINE YELLOW (YELLOW); GLUCOSE, URINE (UA) NEGATIVE (NEGATIVE); KETONES,URINE NEGATIVE (NEGATIVE); LEUKOCYTE ESTERASE ,URINE MODERATE (NEGATIVE); NITRATE,URINE NEGATIVE (NEGATIVE); OCCULT BLOOD,URINE TRACE (NEGATIVE); PH,URINE 5.5 (5.0-8.0); PROTEIN,URINE 30-70 mg/dL (NEGATIVE); SPECIFIC GRAVITIY, URINE 1.033 (1.003-1.030); UROBILINOGEN,URINE <=1.0 mg/dL (<=1.0)
[2024-10-02 12:05] LABS: BACTERIA,URINE Moderate /HPF (None Seen); RBC,URINE 0-2 /HPF (0-2)
[2024-10-02 12:06] LABS: CALCIUM OXALATE CRYSTALS,UR Moderate /LPF (None Seen); SQUAMOUS EPITHELIAL CELL,UR Many /LPF (None Seen)
[2024-10-02] MEDS ORDERED: METR500 PO (12:15)
[2024-10-02] MEDS ORDERED: CEPH-558 PO (12:15)
[2024-10-02] MEDS ORDERED: MICO45CR76 VG (12:15)
[2024-10-02 12:43] VITALS: BP 117/73; PULSE 96; RESP 18; O2SAT 98
== END 2024-10-02 12:51 | disposition home or self-care (01) ==
LOC: EMS 10:25
DX: N39.0 Urinary tract infection, site not specified (principal); B37.31 Acute candidiasis of vulva and vagina; F25.9 Schizoaffective disorder, unspecified; Z88.1 Allergy status to other antibiotic agents; Z98.890 Other specified postprocedural states
CPT/HCPCS: 81001; 87086; 99283

== ENCOUNTER 2024-10-27 12:18 | Emergency (ER) | payer MEDICAID ==
[~2024-10-27] VITALS: Ht 160 cm; Wt 72.7 kg
[~2024-10-27 12:18] MED LIST changes: +CEPH-558 PO; +METR500 PO; +MICO45CR76 VG
[2024-10-27 12:26] VITALS: TEMP 98.1
[2024-10-27 13:00] VITALS: BP 110/68; PULSE 79; RESP 18; O2SAT 98
[2024-10-27] MEDS: BACITRACIN 0.9 GM PACKET OINTMENT TP ONE (13:09)
[2024-10-27] MEDS: PERTUSS(ACELL),DIPH,TET/PF 0.5 ML SYRINGE [ADULT] IM. ONE (13:10)
== END 2024-10-27 13:26 | disposition home or self-care (01) ==
LOC: EMS 12:18
DX: S60.411A Abrasion of left index finger, initial encounter (principal); S60.410A Abrasion of right index finger, initial encounter; F25.9 Schizoaffective disorder, unspecified; Z88.1 Allergy status to other antibiotic agents; Z79.899 Other long term (current) drug therapy; X58.XXXA Exposure to other specified factors, initial encounter; Y93.89 Activity, other specified; Y92.89 Other specified places as the place of occurrence of the external cause; Y99.8 Other external cause status
CPT/HCPCS: 16020; 90471; 90715; 99283

== ENCOUNTER 2024-11-06 21:54 | Emergency (ER) | payer MEDICAID ==
[~2024-11-06] VITALS: Ht 160 cm; Wt 72.0 kg
[~2024-11-06 21:54] MED LIST changes: -CEPH-558 PO; -ESCI10 PO; -METR500 PO
[2024-11-06 22:02] VITALS: TEMP 98.2
[2024-11-06 22:40] LABS: BASOPHILS % (AUTO) 0.4 % (0.0-2.0); EOSINOPHILS % (AUTO) 1.4 % (1.0-6.0); HEMATOCRIT 40.7 % (36-46); HEMOGLOBIN 13.4 g/dL (12.0-16.0); LYMPHOCYTES # (AUTO) 1.9 K/uL (1.0-4.8); LYMPHOCYTES % (AUTO) 30.9 % (22.0-44.0); MEAN CORPUSCULAR HEMOGLOBIN 27.6 pg (26.0-34.0); MEAN CORPUSCULAR HGB CONC 32.9 G/dL (31.0-37.0); MEAN CORPUSCULAR VOLUME 84 fL (80-100); MONOCYTES # (AUTO) 0.6 K/uL (0.1-1.0); MONOCYTES % (AUTO) 9.3 % (2.0-9.0); NEUTROPHILS # (AUTO) 3.6 K/uL (1.8-7.7); PLATELET COUNT (AUTO) 308 K/uL (150-450); RED BLOOD CELL COUNT(AUTO) 4.86 MIL/uL (4.00-5.20); RED CELL DISTRIBUTION WIDTH 14.9 % (11.5-14.5); WHITE BLOOD COUNT (AUTO) 6.2 K/uL (4.5-11.0)
[2024-11-06 22:46] LABS: ANION GAP 9 mmol/L (8-16); CALCIUM, TOTAL 9.1 mg/dL (8.8-10.5); CARBON DIOXIDE 27 mmol/L (22-29); CHLORIDE 103 mmol/L (98-107); CREATININE 0.87 mg/dL (0.60-1.30); GLOMERULAR FILTR. RATE CALC > 60 mL/min (>60); GLUCOSE,RANDOM 107 mg/dL (70-110); POTASSIUM 3.6 mmol/L (3.5-5.1); SODIUM SERUM 139 mmol/L (136-145); UREA NITROGEN, BLOOD 9 mg/dL (7-18)
[2024-11-07 02:10] VITALS: BP 138/88; PULSE 79; RESP 14; O2SAT 97
[2024-11-07 03:00] LABS: APPEARANCE,URINE HAZY (CLEAR); BILIRUBIN,URINE NEGATIVE (NEGATIVE); COLOR,URINE YELLOW (YELLOW); GLUCOSE, URINE (UA) NEGATIVE (NEGATIVE); KETONES,URINE NEGATIVE (NEGATIVE); LEUKOCYTE ESTERASE ,URINE NEGATIVE (NEGATIVE); NITRATE,URINE NEGATIVE (NEGATIVE); OCCULT BLOOD,URINE NEGATIVE (NEGATIVE); PH,URINE 5.5 (5.0-8.0); PROTEIN,URINE TRACE mg/dL (NEGATIVE); SPECIFIC GRAVITIY, URINE 1.026 (1.003-1.030); UROBILINOGEN,URINE <=1.0 mg/dL (<=1.0)
[2024-11-07] MEDS: MAG HYDROX/ALUMINUM HYD/SIMETH ES 30 ML SUSPENSION UDCUP PO ONE (04:41)
== END 2024-11-07 05:06 | disposition home or self-care (01) ==
LOC: EMS 21:54
DX: R10.13 Epigastric pain (principal); F25.9 Schizoaffective disorder, unspecified; Z98.890 Other specified postprocedural states; Z79.899 Other long term (current) drug therapy; Z88.1 Allergy status to other antibiotic agents
CPT/HCPCS: 80048; 81003; 84703; 85025; 99283